=== PATIENT | female | born 1960 | race Caucasian/White ===

== ENCOUNTER 2020-02-02 10:14 | Emergency (ER) | payer BC, MEDICARE ==
[2020-02-02 10:20] VITALS: BP 123/70
--- NOTE | 2020-02-02 11:11 | ER Document Report ---
ED Medical Screen (RME) - General Chief Complaint: Back Pain Stated Complaint: LOWER BACK PAIN Time Seen by Provider: 02/02/20 11:02 Primary Care Provider: KISHAN HOLLEY MD [Primary Care Provider] - Follow up as needed - [facility] Notes: 02/02/20 11:09 59-year-old female with past medical history for chronic back pain. She states that at the beginning of January she had an injection into her back to help with her low back pain. Since then she has had increasing pain. She states that radiates down the back of her right leg. She states she was finally able to get in touch with the pain management clinic that did this and they put her on Percocet 5/325 mg. She states that has not helped her pain. She called the office back and they directed her to come to the emergency department. She denies any fevers or chills. She does not use IV drugs. She denies any bladder or bowel incontinence or urinary retention, she denies any saddle paresthesia. She states she does have weakness in the leg that is new since she had the injection. In brief medical screening exam, her leg strength in the right lower extremity is about 4 out of 5 compared to the left. She also has positive straight leg raise on the right side. I performed a brief medical screening exam on the patient determined that the patient needs further evaluation and management by main side provider. I have placed initial orders to help expedite care. - Related Data Allergies/Adverse Reactions: trazodone Allergy (Verified 02/02/20 10:54) Home Medications: hydroxizine 50mg; cyclobenzopine 10mg; gabapentin 400mg; pentropozole 40mg; loratadine 10mg; clonazapam 0.5mg; magnesium oxide 400mg; lisinopril 40mg; clopidime 10mg; belsamno 15mg; detalizime 360mg; levothyroxine 150mg; atoravastatin; linzest 140mg; Past Medical History - Past Medical History Cardiac Medical History: Reports: Hx Hypercholesterolemia, Hx Hypertension GI Medical History: Denies: Hx Ulcer Psychiatric Medical History: Reports: Hx Depression Past Surgical History: Reports: Hx Orthopedic Surgery - cts right, Hx Tubal Ligation - Immunizations Hx Diphtheria, Pertussis, Tetanus Vaccination: No - Needs Tetanus Physical Exam - Vital signs Vitals: Temp Pulse Resp BP Pulse Ox 98.2 F 93 16 123/70 97 02/02/20 10:19 02/02/20 10:19 02/02/20 10:19 02/02/20 10:19 02/02/20 10:19 Course - Vital Signs Vital signs: Temp Pulse Resp BP Pulse Ox 98.2 F 93 16 123/70 97 02/02/20 10:19 02/02/20 10:19 02/02/20 10:19 02/02/20 10:19 02/02/20 10:19 Doctor's Discharge - Discharge Referrals: KISHAN HOLLEY MD [Primary Care Provider] - Follow up as needed
[2020-02-02 11:35] LABS: ABSOLUTE BASOPHILS # (AUTO) 0.1 10^3/uL (0.0-0.2); ABSOLUTE LYMPHOCYTES (AUTO) 1.8 10^3/uL (0.5-4.7); ABSOLUTE MONOCYTES (AUTO) 0.5 10^3/uL (0.1-1.4); ABSOLUTE NEUT (AUTO) 5.9 10^3/uL (1.7-8.2); BASOPHILS % (AUTO) 0.7 % (0-2); EOSINOPHILS % (AUTO) 0.1 % (0-6); HEMATOCRIT 43.7 % (36.0-47.0); HEMOGLOBIN 14.9 g/dL (12.0-15.5); LYMPHOCYTES % (AUTO) 21.5 % (13-45); MEAN CORPUSCULAR HEMOGLOBIN 31.8 pg (27.0-33.4); MEAN CORPUSCULAR HGB CONC 34.2 g/dL (32.0-36.0); MEAN CORPUSCULAR VOLUME 93 fl (80-97); MONOCYTES % (AUTO) 6.2 % (3-13); PLATELET COUNT 308 10^3/uL (150-450); SEGMENTED NEUTROPHILS % (AUTO) 71.5 % (42-78); TOTAL CELLS COUNTED % (AUTO) 100 %; WHITE BLOOD COUNT 8.3 10^3/uL (4.0-10.5)
--- NOTE | 2020-02-02 11:50 | ER Document Report ---
ED General - General Chief Complaint: Back Pain Stated Complaint: LOWER BACK PAIN Time Seen by Provider: 02/02/20 11:02 Primary Care Provider: KISHAN HOLLEY MD [Primary Care Provider] - Follow up as needed Notes: 59-year-old lady with chronic back pain on chronic pain management with [facility] says that her back's been worse since she got an injection 23 days ago. The injection caused her lumbar pain to radiate down her right leg and has been radiating down there since the injection on January 09. She has no loss of bowel or bladder function mild numbness but no motor symptoms. She is called the pain management clinic multiple times and they told her to come to the ED. She takes chronic Percocet. No fever or injection drug use. - Related Data Allergies/Adverse Reactions: trazodone Allergy (Verified 02/02/20 10:54) Home Medications: hydroxizine 50mg; cyclobenzopine 10mg; gabapentin 400mg; pentropozole 40mg; loratadine 10mg; clonazapam 0.5mg; magnesium oxide 400mg; lisinopril 40mg; clopidime 10mg; belsamno 15mg; detalizime 360mg; levothyroxine 150mg; atoravastatin; linzest 140mg; Past Medical History - General Information source: Patient - Social History Smoking Status: Never Smoker Family History: Reviewed & Not Pertinent Patient has homicidal ideation: No - Past Medical History Cardiac Medical History: Reports: Hx Hypercholesterolemia, Hx Hypertension GI Medical History: Denies: Hx Ulcer Psychiatric Medical History: Reports: Hx Depression Past Surgical History: Reports: Hx Orthopedic Surgery - cts right, Hx Tubal Ligation - Immunizations Hx Diphtheria, Pertussis, Tetanus Vaccination: No - Needs Tetanus Review of Systems - Review of Systems Notes: REVIEW OF SYSTEMS GEN: Denies fever, chills, weight loss ENT: Denies sore throat, nasal discharge, ear pain EYES: Denies blurry vision, eye pain, discharge CV: Denies chest pain, palpitations, edema RESP: Denies cough, shortness of breath, wheezing GI: Denies abdominal pain, nausea, vomiting, diarrhea MSK: Back pain leg pain buttock pain positive straight leg raise on the right SKIN: Denies rash, skin lesions LYMPH: Denies swollen glands/lymph nodes NEURO: Denies headache, focal weakness or numbness, dizziness PSYCH: Denies depression, suicidal or homicidal ideation PHYSICAL EXAMINATION General: No acute distress, well-nourished Head: Atraumatic, normocephalic ENT: Mouth normal, oropharynx moist, no exudates or tonsillar enlargement Eyes: Conjunctiva normal, pupils equal, lids normal Neck: No JVD, supple, no guarding CVS: Normal rate, regular rhythm, no murmurs Resp: No resp distress, equal and normal breath sounds bilaterally GI: Nondistended, soft, no tenderness to palpation, no rebound or guarding Ext: Positive right-sided straight leg raise no deformity or tenderness Back: No CVA or midline TTP Skin: No rash, warm Lymphatic: No lymphadeopathy noted Neuro: Awake, alert. Face symmetric. GCS 15. Mild breakaway weakness right plantar flexion but is symmetric with left secondary to pain. Physical Exam - Vital signs Vitals: Temp Pulse Resp BP Pulse Ox 98.2 F 93 16 123/70 97 02/02/20 10:19 02/02/20 10:19 02/02/20 10:19 02/02/20 10:19 02/02/20 10:19 Course - Re-evaluation Re-evalutation: 02/02/20 13:46 Acute radiculopathy on chronic back pain after an injection without foot drop, focal numbness, fever or other indications of cauda equina or cord compression. The patient does have chronic recurrent pain and I do not think we are going to help her chronic issues here in the ED. I offered nonnarcotic solutions like lidocaine patches steroids and gabapentin but she just finished steroids and already takes gabapentin. I offered to call her pain clinic but was unable to get a hold of them. I let her know that unfortunately she will need to follow- up with them for further care and I do not think today any further testing or treatment is indicated in the emergency department. I have discussed with the patient there likely diagnosis, aftercare plan, follow-up plans and my usual and customary return precautions. They verbalized understanding of this. - Vital Signs Vital signs: Temp Pulse Resp BP Pulse Ox 98.1 F 93 16 123/70 97 02/02/20 13:15 02/02/20 10:19 02/02/20 10:19 02/02/20 10:19 02/02/20 10:19 - Laboratory Result Diagrams: 02/02/20 11:16 02/02/20 11:16 Laboratory results interpreted by me: 02/02/20 02/02/20 11:16 11:16 RDW 15.0 H AST 54 H ALT 85 H Total Protein 6.2 L Discharge - Discharge Clinical Impression: Back pain due to injury Condition: Good Disposition: HOME, SELF-CARE Instructions: Low Back Pain ([facility]) Prescriptions: Lidocaine [Lidoderm 5% (700 mg) Transdermal Patch] 1 patch TP DAILY #10 adh..patch Referrals: KISHAN HOLLEY MD [Primary Care Provider] - Follow up as needed
[2020-02-02 11:58] LABS: ALBUMIN 3.9 g/dL (3.5-5.0); ALKALINE PHOSPHATASE 68 U/L (38-126); ANION GAP 7 (5-19); ASPARTATE AMINO TRANSFERASE 54 U/L (14-36); BILIRUBIN,DIRECT 0.2 mg/dL (0.0-0.4); BILIRUBIN,TOTAL 0.5 mg/dL (0.2-1.3); BLOOD UREA NITROGEN 13 mg/dL (7-20); CALCIUM 9.1 mg/dL (8.4-10.2); CARBON DIOXIDE 25 mmol/L (22-30); CHLORIDE 105 mmol/L (98-107); GLUCOSE 106 mg/dL (75-110); POTASSIUM 4.1 mmol/L (3.6-5.0); TOTAL PROTEIN 6.2 g/dL (6.3-8.2)
== END 2020-02-02 12:00 | disposition home or self-care (01) ==
LOC: ER 10:14
DX: M54.9 Dorsalgia, unspecified (principal); M54.5 Low back pain; M79.604 Pain in right leg; X58.XXXA Exposure to other specified factors, initial encounter; Z79.899 Other long term (current) drug therapy; Z88.8 Allergy status to other drugs, medicaments and biological substances; I10 Essential (primary) hypertension
CPT/HCPCS: 36415; 80053; 85025; 99283